=== PATIENT | male | born 1960 | race Caucasian/White ===

== ENCOUNTER 2017-02-13 10:41 | Outpatient (CLI) | payer BC ==
[~2017-02-13] VITALS: Ht 170.2 cm; Wt 83.9 kg
[~2017-02-13 10:41] MED LIST: ALEV220T26 PO; NS 1,000 ML IV ONE; TRIA0.5O EX
[2017-02-13] MEDS ORDERED: LIDOCAINE 2% INJ 100 MG/5 ML SDV (FOR ANES.) As Ordered ONE (11:34)
[2017-02-13] MEDS ORDERED: PROPOFOL 200 MG/20 ML VIAL As Ordered ONE ×2 (11:34→11:47)
--- NOTE | 2017-02-13 11:51 | ROOR ---
Patient Name: Mayo Yarbrough Procedure Date: 02/13/2017 11:31 AM Date of : 1960 Age: 56 Room: [facility] Gender: Male Note Status: Finalized Procedure: Colonoscopy Indications: High risk colon cancer surveillance: Personal history of colonic polyps, Surveillance: Personal history of colonic polyps (unknown histology) on last colonoscopy 3 years ago Providers: Giorgio POLK MD Referring MD: LARISA FAIR DO Requesting Provider: Medicines: Monitored Anesthesia Care Complications: No immediate complications. Procedure: Pre-Anesthesia Assessment: - The heart rate, respiratory rate, oxygen saturations, blood pressure, adequacy of pulmonary ventilation, and response to care were monitored throughout the procedure. The Colonoscope was introduced through the anus and advanced to the cecum, identified by appendiceal orifice and ileocecal valve. The colonoscopy was performed without difficulty. The patient tolerated the procedure well. The quality of the bowel preparation was good. Findings: The perianal and digital rectal examinations were normal. Small Internal Hemorrhoids. The entire examined colon appeared normal on direct and retroflexion views. Impression: - Small Internal Hemorrhoids. - The entire colon is normal on direct and retroflexion views. - No specimens collected. Recommendation: - Repeat colonoscopy in 5 years for surveillance based on personal history of previous adenomatous polyps. Giorgio Polk MD Giorgio POLK MD 02/13/2017 11:51:18 AM This report has been signed electronically. Number of Addenda: 0 Note Initiated On: 02/13/2017 11:31 AM Estimated Blood Loss: Estimated blood loss: none.
[2017-02-13 12:16] VITALS: BP 114/71
== END 2017-02-13 12:15 | disposition home or self-care (01) ==
LOC: M OPP 10:41
PROVIDERS: ATTEND Internal Medicine Gastroenterology
DX: Z12.11 Encounter for screening for malignant neoplasm of colon (principal); K64.8 Other hemorrhoids; R73.09 Other abnormal glucose; R06.83 Snoring; Z87.891 Personal history of nicotine dependence; Z79.899 Other long term (current) drug therapy

== ENCOUNTER → 2018-12-28 | Outpatient (REF) | payer BC ==
[~2018-12-28] MED LIST changes: -NS 1,000 ML IV ONE
== END ==
LOC: M SFHCCLAY 15:06
PROVIDERS: ATTEND Nurse Practitioner Family
DX: R31.9 Hematuria, unspecified (principal)

== ENCOUNTER → 2019-01-03 | Outpatient (CLI) | payer BC, OTHER ==
[2019-01-03 13:45] LABS: APPEARANCE, URINE CLEAR (CLEAR); BACTERIA, URINE AUTO NEGATIVE (NEGATIVE); BILIRUBIN, URINE AUTO NEGATIVE (NEGATIVE); BLOOD, URINE BLOOD NEGATIVE (NEGATIVE); COLOR, URINE YELLOW (YELLOW); GLUCOSE, URINE (UA) AUTO NEGATIVE (NEGATIVE); KETONE, URINE AUTO NEGATIVE (NEGATIVE); LEUKOCYTE ESTERASE, URINE AUTO NEGATIVE (NEGATIVE); NITRITE, URINE AUTO NEGATIVE (NEGATIVE); PROTEIN, URINE AUTO NEGATIVE (NEGATIVE); RBC, URINE AUTO 1 /HPF (0-3); SPECIFIC GRAVITY URINE AUTO 1.016 (1.002-1.035); SQUAMOUS EPITHELIAL CELL UR AU 0 /HPF (0-6); UROBILINOGEN, URINE AUTO 0.2 mg/dL (0.0-2.0); WBC, URINE AUTO 1 /HPF (0-3)
[2019-01-03 14:01] LABS: BLOOD UREA NITROGEN 16 MG/DL (7-18); CALCIUM LEVEL 8.9 MG/DL (8.8-10.2); CARBON DIOXIDE LEVEL 29 MEQ/L (21-32); CHLORIDE LEVEL 104 MEQ/L (98-107); CREATININE FOR GFR 0.97 MG/DL (0.70-1.30); GLOMERULAR FILTRATION RATE > 60.0 (>49); GLUCOSE, FASTING 185 MG/DL (70-100); POTASSIUM SERUM 4.6 MEQ/L (3.5-5.1); SODIUM LEVEL 139 MEQ/L (136-145)
== END ==
LOC: M SMT 11:16
PROVIDERS: ATTEND Nurse Practitioner Women's Health
DX: R31.0 Gross hematuria (principal); Z12.5 Encounter for screening for malignant neoplasm of prostate
CPT/HCPCS: 36415; 80048; 81001; 87086; G0103

== ENCOUNTER → 2019-01-07 | Outpatient (CLI) | payer OTHER ==
[~2019-01-07] MED LIST changes: +ISOVUE-370 76% 100ML VIAL (Q9967) As Ordered ONE
--- NOTE | 2019-01-07 11:21 | REP ---
Clinical: Gross hematuria. Technique: Precontrast, contrast enhanced, and delayed images of the abdomen and pelvis using 100 ml Isovue 370 intravenous contrast material with coronal and sagittal re-formations. Findings: Evaluation of the urinary tract system demonstrates 1.1 cm simple left renal cyst and mild chronic bilateral perinephric stranding. No hydroureteronephrosis or nephroureterolithiasis. No renal mass lesion. Bilateral ureters and bladder appear normal. Liver, spleen, pancreas, gallbladder, and bilateral adrenal glands are normal. The enteric system is without obstruction or acute inflammatory process. Colonic and sigmoid diverticula noted without acute diverticulitis. Pelvis demonstrates normal bladder. Prostate gland is moderately enlarged measuring approximately 4.8 cm maximal transverse diameter. No ascites. No free air. No adenopathy. Abdominal aorta without aneurysm or dissection. Musculoskeletal structures without focal osseous abnormality. Lung bases are clear. Impression: 1. 1.1 cm simple left renal cyst. 2. Scattered colonic diverticula without acute diverticulitis. 3. No further acute abdominopelvic pathology appreciated. 4. Prostate gland mildly enlarged. Electronically Signed by Kush Guzmán MD 01/07/2019 11:13 A
== END ==
LOC: M RAD 09:36
PROVIDERS: ATTEND Nurse Practitioner Women's Health
DX: R31.0 Gross hematuria (principal)
CPT/HCPCS: 74178; Q9967

== ENCOUNTER → 2019-01-18 | Outpatient (REF) | payer OTHER ==
[~2019-01-18] MED LIST changes: -ISOVUE-370 76% 100ML VIAL (Q9967) As Ordered ONE
[2019-01-18 12:14] LABS: ALBUMIN 3.8 GM/DL (3.2-5.2); ALT/SGPT 17 U/L (12-78); BILIRUBIN,TOTAL 0.7 MG/DL (0.2-1.0); BLOOD UREA NITROGEN 12 MG/DL (7-18); CALCIUM LEVEL 8.7 MG/DL (8.8-10.2); CARBON DIOXIDE LEVEL 28 MEQ/L (21-32); CHLORIDE LEVEL 106 MEQ/L (98-107); CHOLESTEROL LEVEL 204 MG/DL (<200); CHOLESTEROL RISK RATIO 3.517 (<5); CREATININE FOR GFR 0.77 MG/DL (0.70-1.30); GLOMERULAR FILTRATION RATE > 60.0 (>49); GLUCOSE, FASTING 124 MG/DL (70-100); HDL CHOLESTEROL 58 MG/DL (>40); LDL CHOLESTEROL 130 MG/DL (<100); NON-HDL-C 146 MG/DL; POTASSIUM SERUM 4.3 MEQ/L (3.5-5.1); SODIUM LEVEL 140 MEQ/L (136-145); TOTAL PROTEIN 6.5 GM/DL (6.4-8.2); TRIGLYCERIDES LEVEL 82 MG/DL (<150)
== END ==
LOC: M SFHCCLAY 08:16
PROVIDERS: ATTEND Family Medicine
DX: Z00.00 Encounter for general adult medical examination without abnormal findings (principal); Z13.220 Encounter for screening for lipoid disorders; Z13.1 Encounter for screening for diabetes mellitus; Z83.3 Family history of diabetes mellitus

== ENCOUNTER → 2019-01-21 | Outpatient (REF) | payer OTHER ==
[2019-01-21 13:39] LABS: HEMOGLOBIN A1c 6.1 %
== END ==
LOC: M SFHCCLAY 08:18
PROVIDERS: ATTEND Family Medicine
DX: R73.01 Impaired fasting glucose (principal)

== ENCOUNTER → 2019-04-12 | Outpatient (REF) | payer OTHER ==
[~2019-04-12] MED LIST changes: +ALEV220T22 PO; +IBUP-1022 PO
[2019-04-12 17:07] LABS: ALBUMIN 3.9 GM/DL (3.2-5.2); ALT/SGPT 20 U/L (12-78); BILIRUBIN,TOTAL 0.7 MG/DL (0.2-1.0); BLOOD UREA NITROGEN 11 MG/DL (7-18); CALCIUM LEVEL 9.2 MG/DL (8.8-10.2); CARBON DIOXIDE LEVEL 30 MEQ/L (21-32); CHLORIDE LEVEL 105 MEQ/L (98-107); CREATININE FOR GFR 0.78 MG/DL (0.70-1.30); GLOMERULAR FILTRATION RATE > 60.0 (>49); GLUCOSE, FASTING 101 MG/DL (70-100); POTASSIUM SERUM 4.2 MEQ/L (3.5-5.1); SODIUM LEVEL 141 MEQ/L (136-145); TOTAL PROTEIN 6.9 GM/DL (6.4-8.2)
[2019-04-12 17:12] LABS: HEMATOCRIT 43.8 % (42.0-52.0); HEMOGLOBIN 14.7 g/dl (13.5-17.5); MEAN CORPUSCULAR HEMOGLOBIN 33.3 pg (27.0-33.0); MEAN CORPUSCULAR HGB CONC 33.6 g/dl (32.0-36.5); MEAN CORPUSCULAR VOLUME 99.3 fl (80.0-96.0); PLATELET COUNT, AUTOMATED 213 10^3/uL (150-450); RED BLOOD COUNT 4.41 10^6/uL (4.30-6.10); WHITE BLOOD COUNT 5.8 10^3/uL (4.0-10.0)
[2019-04-12 17:27] LABS: BACTERIA, URINE AUTO NEGATIVE (NEGATIVE); RBC, URINE AUTO 0 /HPF (0-3); SQUAMOUS EPITHELIAL CELL UR AU 0 /HPF (0-6); WBC, URINE AUTO 0 /HPF (0-3)
== END ==
LOC: M LABSMT 10:08
PROVIDERS: ATTEND Specialist
DX: Z01.818 Encounter for other preprocedural examination (principal); R31.9 Hematuria, unspecified; D49.4 Neoplasm of unspecified behavior of bladder

== ENCOUNTER → 2019-04-12 | Outpatient (CLI) | payer OTHER ==
[~2019-04-12] MED LIST changes: -IBUP-1022 PO
--- NOTE | 2019-04-12 14:22 | REP ---
Chest x-ray: Two views. History: Bladder tumor. No comparison chest x-ray. Findings: The lungs are well inflated and clear. The pleural angles are sharp. Heart is near the upper range of normal in size. Cardiothoracic ratio is 46.7%. Pulmonary vasculature is not increased. There are degenerative changes in the thoracic spine. Impression: Heart near the upper range of normal in size. Otherwise negative chest x-ray. Electronically Signed by Faisal Ivey MD 04/12/2019 02:30 P
== END ==
LOC: M LRY 10:13
PROVIDERS: ATTEND Urology
DX: Z01.818 Encounter for other preprocedural examination (principal); D49.4 Neoplasm of unspecified behavior of bladder

== ENCOUNTER 2019-04-22 09:14 | Day surgery (SDC) | payer OTHER ==
[~2019-04-22] VITALS: Ht 170.2 cm; Wt 77.6 kg
[~2019-04-22 09:14] MED LIST changes: +LR 1,000 ML IV ONE; +ceFAZolin SOD 2 GM in IV 1 EA IV ONE; +mitoMYcin 40MG VIAL *UROLOGY* (J9280 PER 5MG) INTRAVESIC ONE
[2019-04-22] MEDS ORDERED: IBUP-1022 PO (09:32)
[2019-04-22] MEDS ORDERED: LIDOCAINE 2% INJ 100 MG/5 ML SDV (FOR ANES.) As Ordered ONE (12:05)
[2019-04-22] MEDS ORDERED: PROPOFOL 200 MG/20 ML VIAL As Ordered ONE (12:05)
[2019-04-22] MEDS ORDERED: ONDANSETRON 4MG/2ML VIAL (J2405) As Ordered ONE (12:06)
[2019-04-22] MEDS ORDERED: MIDAZOLAM INJ 2 MG/2 ML VIAL (J2250) As Ordered ONE (12:06)
[2019-04-22] MEDS ORDERED: dexameTHASONE 4 MG/ML 1ML VIAL (J1100) As Ordered ONE (12:06)
[2019-04-22] MEDS ORDERED: ROCURONIUM BROMIDE 50 MG/5 ML VIAL As Ordered ONE (12:06)
[2019-04-22] MEDS ORDERED: fentaNYL 100 MCG/2 ML INJECTION (J3010) As Ordered ONE ×2 (12:06→13:26)
[2019-04-22] MEDS ORDERED: ACETAMINOPHEN 1000MG 100ML IV BTL (OFIRMEV) (J0131 PER 10MG) As Ordered ONE (13:31)
[2019-04-22] MEDS ORDERED: SUGAMMADEX SODIUM 500 MG/5 ML VIAL (BRIDION) As Ordered ONE (13:34)
[2019-04-22] MEDS ORDERED: ONDANSETRON 4MG/2ML VIAL (J2405) IV PRN (14:15)
[2019-04-22] MEDS ORDERED: fentaNYL 100 MCG/2 ML INJECTION (J3010) IV PRN (14:15)
[2019-04-22] MEDS ORDERED: ACETAMINOPHEN TAB 650MG DOSE (2X325MG) PO PRN ×2 (14:15→16:45)
[2019-04-22] MEDS ORDERED: oxyCODONE 5MG TAB PO PRN (14:15)
[2019-04-22] MEDS ORDERED: LR 1,000 ML IV SCH (14:15)
[2019-04-22] MEDS ORDERED: oxyCODONE 5MG TAB As Ordered ONE (16:42)
[2019-04-22] MEDS ORDERED: oxyBUTYnin 5 MG TAB PO ONE ×2 (17:30→17:45)
[2019-04-22 17:50] VITALS: BP 143/80
--- NOTE | 2019-04-22 19:59 | RO ---
DATE OF PROCEDURE: 04/22/2019 PREPROCEDURE DIAGNOSIS: Bladder tumor. POSTPROCEDURE DIAGNOSIS: Bladder tumor. PROCEDURE: Cystoscopy, transurethral resection of bladder tumor (less than 2 cm), intravesical mitomycin C installation, examination under anesthesia. SURGEON: Dave Correa MD PLAYGROUND DIRECTOR: None. ANESTHESIA: General. OPERATIVE INDICATIONS: This is a 59-year-old male who was found to have approximately 1.5 cm tumor in his bladder. He was brought to the operating room today for treatment. DESCRIPTION OF PROCEDURE: The patient was brought to the operating room and general anesthesia was induced. Prophylactic antibiotics were infused. He was then placed in the dorsal lithotomy position and bimanual digital rectal examination under anesthesia was performed. It was negative for prostate nodules. There were no palpable bladder masses. The bladder was fairly mobile. The patient was then prepped and draped in the usual sterile fashion. I then inserted a resectoscope into the urethral meatus and advanced this to the bladder using a visual obturator. Once inside the bladder, it was thoroughly examined. The only abnormality seen was an approximately 1.5 cm papillary tumor a little bit lateral to the left ureteral orifice. This tumor was then completely resected and the specimen sent for pathologic analysis. The base of the resection was cauterized using coagulation current. Once there was good hemostasis I observed the left ureteral orifice to make sure it was not damaged during this procedure and it effluxed clear urine without any difficulty. At this point, I removed the resectoscope and inserted and #18- Uzbek three-way catheter. The balloon was filled with 30 mL of sterile water. I then hooked the irrigation port up to irrigation tubing and clamped it off. I then used the main flow channel to instill mitomycin C into the bladder at this point. 40 mg of mitomycin C was instilled. Once that was done, a catheter plug was inserted and this marked the conclusion of the procedure. The patient was then awakened from anesthesia and taken out of the dorsal lithotomy position and transferred to the recovery room in stable condition. ESTIMATED BLOOD LOSS: 5 mL COMPLICATIONS: None. SPECIMENS: Bladder tumor. PLAN: The patient will keep the mitomycin C in his bladder for an hour and then it will be allowed to drain out. He will ollowup in the clinic next week for catheter removal and to discuss the pathology results. MINDI
== END 2019-04-22 18:05 | disposition home or self-care (01) ==
LOC: M SDC 09:14
PROVIDERS: ATTEND Urology
DX: C67.9 Malignant neoplasm of bladder, unspecified (principal); R73.03 Prediabetes; R94.31 Abnormal electrocardiogram [ECG] [EKG]; R06.83 Snoring; N40.0 Benign prostatic hyperplasia without lower urinary tract symptoms; Z87.891 Personal history of nicotine dependence; Z86.010 Personal history of colon polyps
CPT/HCPCS: 51720; 52224; 88305; J0131; J0690; J1100; J2250; J2405; J3010; J9280

== ENCOUNTER → 2019-06-01 | Outpatient (REF) | payer OTHER ==
[~2019-06-01] MED LIST changes: +IBUP-1022 PO; -LR 1,000 ML IV ONE; -ceFAZolin SOD 2 GM in IV 1 EA IV ONE; -mitoMYcin 40MG VIAL *UROLOGY* (J9280 PER 5MG) INTRAVESIC ONE
[2019-06-01 17:54] LABS: APPEARANCE, URINE CLEAR (CLEAR); BACTERIA, URINE AUTO NEGATIVE (NEGATIVE); BILIRUBIN, URINE AUTO NEGATIVE (NEGATIVE); BLOOD, URINE BLOOD 3+ (NEGATIVE); COLOR, URINE YELLOW (YELLOW); GLUCOSE, URINE (UA) AUTO NEGATIVE (NEGATIVE); KETONE, URINE AUTO NEGATIVE (NEGATIVE); LEUKOCYTE ESTERASE, URINE AUTO NEGATIVE (NEGATIVE); MUCUS, URINE SMALL (NEGATIVE); NITRITE, URINE AUTO NEGATIVE (NEGATIVE); PROTEIN, URINE AUTO NEGATIVE (NEGATIVE); RBC, URINE AUTO 100 /HPF (0-3); SPECIFIC GRAVITY URINE AUTO 1.023 (1.002-1.035); SQUAMOUS EPITHELIAL CELL UR AU 0 /HPF (0-6); UROBILINOGEN, URINE AUTO 0.2 mg/dL (0.0-2.0); WBC, URINE AUTO 4 /HPF (0-3)
== END ==
LOC: M SMT 16:57
PROVIDERS: ATTEND Nurse Practitioner Women's Health
DX: R30.0 Dysuria (principal)

== ENCOUNTER → 2019-08-01 | Outpatient (REF) | payer OTHER | LOC: M SMT 13:04 | PROVIDERS: ATTEND Urology | DX: C67.9 Malignant neoplasm of bladder, unspecified (principal) ==

== ENCOUNTER → 2019-08-24 | Outpatient (CLI) | payer OTHER ==
[2019-08-24 12:00] LABS: HEMOGLOBIN A1c 5.9 %
[2019-08-24 12:15] LABS: BLOOD UREA NITROGEN 10 MG/DL (7-18); CARBON DIOXIDE LEVEL 30 MEQ/L (21-32); CHLORIDE LEVEL 104 MEQ/L (98-107); CHOLESTEROL LEVEL 187 MG/DL (<200); CREATININE FOR GFR 0.74 MG/DL (0.70-1.30); FREE T4 1.15 NG/DL (0.76-1.46); GLOMERULAR FILTRATION RATE > 60.0 (>49); GLUCOSE, FASTING 101 MG/DL (70-100); HDL CHOLESTEROL 41 MG/DL (>40); LDL CHOLESTEROL 118 MG/DL (<100); NON-HDL-C 146 MG/DL; POTASSIUM SERUM 4.5 MEQ/L (3.5-5.1); SODIUM LEVEL 140 MEQ/L (136-145); TRIGLYCERIDES LEVEL 141 MG/DL (<150)
== END ==
LOC: M LRY 10:09
PROVIDERS: ATTEND Family Medicine
DX: R00.1 Bradycardia, unspecified (principal); R73.03 Prediabetes; E78.5 Hyperlipidemia, unspecified

== ENCOUNTER → 2019-10-24 | Outpatient (REF) | payer OTHER | LOC: M SMT 13:12 | PROVIDERS: ATTEND Urology | DX: C67.9 Malignant neoplasm of bladder, unspecified (principal) ==

== ENCOUNTER → 2020-04-30 | Outpatient (REF) | payer OTHER | LOC: M SMT 13:31 | PROVIDERS: ATTEND Urology | DX: C67.9 Malignant neoplasm of bladder, unspecified (principal) ==

== ENCOUNTER → 2020-10-29 | Outpatient (REF) | payer OTHER | LOC: M SMT 13:23 | PROVIDERS: ATTEND Urology | DX: C67.9 Malignant neoplasm of bladder, unspecified (principal) ==

== ENCOUNTER → 2020-10-30 | Outpatient (REF) | payer OTHER | LOC: M LABDRAWC 11:12 | PROVIDERS: ATTEND Urology | DX: Z12.5 Encounter for screening for malignant neoplasm of prostate (principal) ==

== ENCOUNTER → 2021-01-24 | Outpatient (REF) | payer OTHER ==
[2021-01-24 16:42] LABS: BLOOD UREA NITROGEN 12 MG/DL (7-18); CALCIUM LEVEL 9.4 MG/DL (8.8-10.2); CARBON DIOXIDE LEVEL 32 MEQ/L (21-32); CHLORIDE LEVEL 107 MEQ/L (98-107); CREATININE FOR GFR 0.93 MG/DL (0.70-1.30); GLOMERULAR FILTRATION RATE > 60.0 (>49); GLUCOSE, FASTING 103 MG/DL (70-100); SODIUM LEVEL 140 MEQ/L (136-145)
[2021-01-24 17:16] LABS: HEMOGLOBIN A1c 5.6 %
== END ==
LOC: M SFHCCLAY 11:34
PROVIDERS: ATTEND Family Medicine
DX: R73.03 Prediabetes (principal)

== ENCOUNTER → 2021-05-06 | Outpatient (REF) | payer OTHER | LOC: M SMT 13:16 | PROVIDERS: ATTEND Urology | DX: C67.9 Malignant neoplasm of bladder, unspecified (principal) ==

== ENCOUNTER → 2021-11-11 | Outpatient (REF) | payer OTHER | LOC: M SMT 12:59 | PROVIDERS: ATTEND Urology | DX: C67.9 Malignant neoplasm of bladder, unspecified (principal) ==

== ENCOUNTER → 2022-01-29 | Outpatient (REF) | payer OTHER ==
[2022-01-29 18:49] LABS: HEMOGLOBIN A1c 5.7 %
[2022-01-29 18:55] LABS: BLOOD UREA NITROGEN 14 MG/DL (7-18); CALCIUM LEVEL 9.9 MG/DL (8.8-10.2); CARBON DIOXIDE LEVEL 28 MEQ/L (21-32); CHLORIDE LEVEL 108 MEQ/L (98-107); CHOLESTEROL LEVEL 233 MG/DL (<200); GLOMERULAR FILTRATION RATE > 60.0 (>49); GLUCOSE, FASTING 112 MG/DL (70-100); HDL CHOLESTEROL 66 MG/DL (>40); LDL CHOLESTEROL 144 MG/DL (<100); NON-HDL-C 167 MG/DL; POTASSIUM SERUM 4.7 MEQ/L (3.5-5.1); SODIUM LEVEL 142 MEQ/L (136-145); TRIGLYCERIDES LEVEL 114 MG/DL (<150)
== END ==
LOC: M SFHCCLAY 09:58
PROVIDERS: ATTEND Family Medicine
DX: Z00.00 Encounter for general adult medical examination without abnormal findings (principal); R73.03 Prediabetes; E78.5 Hyperlipidemia, unspecified; Z12.5 Encounter for screening for malignant neoplasm of prostate
CPT/HCPCS: 80048; 80061; 83036; G0103

== ENCOUNTER → 2022-04-10 | Outpatient (CLI) | payer OTHER | LOC: M LABSMTC 10:24 | PROVIDERS: ATTEND Anesthesiology | DX: Z01.812 Encounter for preprocedural laboratory examination (principal); Z11.52 Encounter for screening for COVID-19 ==

== ENCOUNTER 2022-04-15 08:37 | Day surgery (SDC) | payer OTHER ==
[~2022-04-15] VITALS: Ht 170.2 cm; Wt 82.3 kg
[~2022-04-15 08:37] MED LIST changes: +NS 1,000 ML IV ONE
[2022-04-15] MEDS ORDERED: propofoL 200 MG/20 ML VIAL As Ordered ONE (09:54)
[2022-04-15] MEDS ORDERED: LIDOCAINE 2% 100MG/5ML SDV (FOR ANES.) As Ordered ONE (09:54)
[2022-04-15 10:35] VITALS: BP 107/60
== END 2022-04-15 10:46 | disposition home or self-care (01) ==
LOC: M OPP 08:37
PROVIDERS: ATTEND Internal Medicine Gastroenterology
DX: Z12.11 Encounter for screening for malignant neoplasm of colon (principal); Z86.010 Personal history of colon polyps; Z80.0 Family history of malignant neoplasm of digestive organs; D12.5 Benign neoplasm of sigmoid colon; Z79.1 Long term (current) use of non-steroidal anti-inflammatories (NSAID); Z79.52 Long term (current) use of systemic steroids; M17.12 Unilateral primary osteoarthritis, left knee; Z85.51 Personal history of malignant neoplasm of bladder; Z92.21 Personal history of antineoplastic chemotherapy

== ENCOUNTER → 2022-05-20 | Outpatient (REF) | payer OTHER ==
[~2022-05-20] MED LIST changes: -NS 1,000 ML IV ONE
== END ==
LOC: M SMT 15:40
PROVIDERS: ATTEND Urology
DX: C67.9 Malignant neoplasm of bladder, unspecified (principal)

== ENCOUNTER → 2022-10-24 | Outpatient (CLI) | payer OTHER | LOC: M WHC 15:16 | PROVIDERS: ATTEND Nurse Practitioner Family | DX: N43.3 Hydrocele, unspecified (principal); N44.2 Benign cyst of testis; N50.812 Left testicular pain; N50.89 Other specified disorders of the male genital organs ==

== ENCOUNTER 2022-11-03 23:38 | Emergency (ER) | payer OTHER ==
[~2022-11-03] VITALS: Ht 170.2 cm; Wt 87.0 kg
[2022-11-04] MEDS ORDERED: methylPREDNISolone 125MG 2ML VIAL IV ONE (01:35)
[2022-11-04] MEDS ORDERED: diazePAM 10MG/2ML SYRINGE IM ONE (01:35)
[2022-11-04] MEDS ORDERED: carisoprodoL 350 MG TAB PO ONE (04:45)
[2022-11-04] MEDS ORDERED: NS 1,000 ML IV ONE (04:50)
[2022-11-04 05:00] LABS: AMPHETAMINES LEVEL URINE NEGATIVE (NEGATIVE); BARBITURATES URINE NEGATIVE (NEGATIVE); BENZODIAZEPINES URINE NEGATIVE (NEGATIVE); CANNABINOIDS URINE NEGATIVE (NEGATIVE); COCAINE METABOLITE URINE NEGATIVE (NEGATIVE); METHADONE URINE NEGATIVE (NEGATIVE); OPIATES URINE NEGATIVE (NEGATIVE); PHENCYCLIDINE URINE NEGATIVE (NEGATIVE)
[2022-11-04] MEDS ORDERED: PREGABALIN 100 MG CAP (LYRICA) PO ONE (06:00)
[2022-11-04 07:54] VITALS: BP 127/60
[2022-11-04] MEDS ORDERED: MEDR4PAK PO (07:55)
[2022-11-04] MEDS ORDERED: PREG25CA PO (07:56)
== END 2022-11-04 08:17 | disposition home or self-care (01) ==
LOC: M ED 23:38 → EDBD 23:38 → M ED 11-04 08:17
DX: M54.30 Sciatica, unspecified side (principal); E78.5 Hyperlipidemia, unspecified; Z87.891 Personal history of nicotine dependence; Z79.899 Other long term (current) drug therapy
CPT/HCPCS: 72131; 73502; 80307; 81002; 96372; 96374; 99284; J2930; J3360

== ENCOUNTER 2022-11-06 10:58 | Emergency (ER) | payer OTHER ==
[~2022-11-06] VITALS: Ht 170.2 cm; Wt 81.8 kg
[~2022-11-06 10:58] MED LIST changes: +MEDR4PAK PO; +PREG25CA PO
[2022-11-06] MEDS ORDERED: PERCOCET 5MG/325MG TAB PO ONE (11:20)
[2022-11-06 15:38] VITALS: BP 166/78
== END 2022-11-06 15:40 | disposition home or self-care (01) ==
LOC: M ED 10:58 → EDBD 10:58 → M ED 15:40
DX: M51.26 Other intervertebral disc displacement, lumbar region (principal); F17.200 Nicotine dependence, unspecified, uncomplicated; Z79.899 Other long term (current) drug therapy

== ENCOUNTER 2022-11-30 10:29 | Emergency (ER) | payer OTHER ==
[~2022-11-30] VITALS: Ht 170.2 cm; Wt 84.4 kg
[2022-11-30] MEDS ORDERED: PREG25CA2 (10:58)
[2022-11-30] MEDS ORDERED: MELO7.5T35 (10:58)
[2022-11-30] MEDS ORDERED: ACET-683 PO (10:58)
[2022-11-30] MEDS ORDERED: ACYC1TAB4 PO (12:34)
[2022-11-30 12:41] VITALS: BP 141/74
== END 2022-11-30 12:50 | disposition home or self-care (01) ==
LOC: M ED 10:29
DX: B02.9 Zoster without complications (principal); Z79.899 Other long term (current) drug therapy

== ENCOUNTER → 2022-12-19 | Outpatient (CLI) | payer OTHER ==
[~2022-12-19] MED LIST changes: +ACET-683 PO; +ACYC1TAB4 PO; +BUPIVACAINE HCL 0.5% 30ML VIAL As Ordered ONE; +ISOVUE-300 61% 100ML VIAL As Ordered ONE; +LIDOCAINE 1% MDV 20ML VIAL As Ordered ONE; +MELO7.5T35; +PREG25CA2; +methylPREDNISolone SUSP 40MG/ML 1ML VIAL (DEPO MEDROL) As Ordered ONE
== END ==
LOC: M RAD 14:53
PROVIDERS: ATTEND Orthopaedic Surgery
DX: M16.12 Unilateral primary osteoarthritis, left hip (principal)
CPT/HCPCS: 20610; 77002; J1030; Q9967; S0020

== ENCOUNTER → 2022-12-31 | Outpatient (REF) | payer OTHER ==
[~2022-12-31] MED LIST changes: -BUPIVACAINE HCL 0.5% 30ML VIAL As Ordered ONE; -ISOVUE-300 61% 100ML VIAL As Ordered ONE; -LIDOCAINE 1% MDV 20ML VIAL As Ordered ONE; -methylPREDNISolone SUSP 40MG/ML 1ML VIAL (DEPO MEDROL) As Ordered ONE
[2022-12-31 12:38] LABS: ALBUMIN 3.8 G/DL (3.2-5.2); ALKALINE PHOSPHATASE 56 U/L (46-116); ALT/SGPT < 9 U/L (7.0-40); AST/SGOT 13 U/L (<34); BILIRUBIN,TOTAL 0.7 MG/DL (0.3-1.2); BLOOD UREA NITROGEN 15 MG/DL (9-23); CALCIUM LEVEL 9.1 MG/DL (8.3-10.6); CARBON DIOXIDE LEVEL 31 MMOL/L (20-31); CHLORIDE LEVEL 103 MMOL/L (98-107); CHOLESTEROL LEVEL 218 MG/DL (<200); CREATININE FOR GFR 0.71 MG/DL (0.70-1.30); GLOMERULAR FILTRATION RATE > 60.0 (>49); GLUCOSE, FASTING 155 MG/DL (74-106); HDL CHOLESTEROL 64.1 MG/DL (>40); LDL CHOLESTEROL 133.5 MG/DL (<100); NON-HDL-C 153.9 MG/DL; POTASSIUM SERUM 4.1 MMOL/L (3.5-5.1); SODIUM LEVEL 139 MMOL/L (136-145); TOTAL PROTEIN 6.4 G/DL (5.7-8.2); TRIGLYCERIDES LEVEL 102 MG/DL (<150)
[2022-12-31 13:14] LABS: HEMOGLOBIN A1c 5.9 % (4.0-6.0)
== END ==
LOC: M SFHCCLAY 07:06
PROVIDERS: ATTEND Nurse Practitioner Family
DX: R73.03 Prediabetes (principal); E78.5 Hyperlipidemia, unspecified

== ENCOUNTER → 2023-05-19 | Outpatient (REF) | payer OTHER ==
[~2023-05-19] MED LIST changes: -PREG25CA2; +PREG25CA3
== END ==
LOC: M SMT 17:34
PROVIDERS: ATTEND Urology
DX: C67.9 Malignant neoplasm of bladder, unspecified (principal)

== ENCOUNTER → 2024-01-15 | Outpatient (REF) | payer MEDICARE ==
[2024-01-15 17:36] LABS: ALKALINE PHOSPHATASE 63 U/L (46-116); ALT/SGPT 26 U/L (7.0-40); AST/SGOT 22 U/L (<34); BILIRUBIN,TOTAL 1.1 MG/DL (0.3-1.2); BLOOD UREA NITROGEN 19 MG/DL (9-23); CALCIUM LEVEL 9.5 MG/DL (8.3-10.6); CARBON DIOXIDE LEVEL 28 MMOL/L (20-31); CHLORIDE LEVEL 107 MMOL/L (98-107); CHOLESTEROL LEVEL 210 MG/DL (<200); CHOLESTEROL RISK RATIO 3.38 (<5); CREATININE FOR GFR 0.91 MG/DL (0.70-1.30); GLOMERULAR FILTRATION RATE > 60.0 (>49); GLUCOSE, FASTING 115 MG/DL (74-106); POTASSIUM SERUM 4.8 MMOL/L (3.5-5.1); PSA SCREENING 1.37 NG/ML (< 4.00); SODIUM LEVEL 140 MMOL/L (136-145); TOTAL PROTEIN 6.7 G/DL (5.7-8.2); TRIGLYCERIDES LEVEL 85 MG/DL (<150)
[2024-01-15 17:46] LABS: HEMOGLOBIN A1c 5.3 % (4.0-6.0)
== END ==
LOC: M SFHCCLAY 10:14
PROVIDERS: ATTEND Nurse Practitioner Family
DX: N43.3 Hydrocele, unspecified (principal); M51.36 Other intervertebral disc degeneration, lumbar region; E78.5 Hyperlipidemia, unspecified; R73.03 Prediabetes; Z12.5 Encounter for screening for malignant neoplasm of prostate
CPT/HCPCS: 80053; 80061; 83036; G0103

== ENCOUNTER → 2024-05-23 | Outpatient (REF) | payer MEDICARE | LOC: M SMT 13:15 | PROVIDERS: ATTEND Urology | DX: C67.9 Malignant neoplasm of bladder, unspecified (principal) ==

== ENCOUNTER → 2024-06-23 | Outpatient (REF) | payer MEDICARE ==
[2024-06-23 17:30] LABS: BLOOD UREA NITROGEN 18 MG/DL (9-23); CALCIUM LEVEL 9.7 MG/DL (8.3-10.6); CARBON DIOXIDE LEVEL 30 MMOL/L (20-31); CHLORIDE LEVEL 106 MMOL/L (98-107); CREATININE FOR GFR 0.86 MG/DL (0.70-1.30); GLOMERULAR FILTRATION RATE > 60.0 (>49); GLUCOSE, FASTING 98 MG/DL (74-106); POTASSIUM SERUM 4.2 MMOL/L (3.5-5.1); SODIUM LEVEL 143 MMOL/L (136-145)
== END ==
LOC: M LABSMT 13:44
PROVIDERS: ATTEND Urology
DX: C67.9 Malignant neoplasm of bladder, unspecified (principal)

== ENCOUNTER → 2024-06-29 | Outpatient (CLI) | payer MEDICARE ==
[~2024-06-29] MED LIST changes: +ISOVUE-370 76% 100ML VIAL As Ordered ONE
== END ==
LOC: M RAD 10:39
PROVIDERS: ATTEND Urology
DX: C67.9 Malignant neoplasm of bladder, unspecified (principal)
CPT/HCPCS: 74178; Q9967

== ENCOUNTER → 2024-07-27 | Outpatient (CLI) | payer MEDICARE ==
[~2024-07-27] MED LIST changes: -ISOVUE-370 76% 100ML VIAL As Ordered ONE; -MELO7.5T35; +MELO7.5T35 PO; -PREG25CA3; +PREG25CA3 PO
== END ==
LOC: M CLY 08:56
PROVIDERS: ATTEND Urology
DX: Z01.818 Encounter for other preprocedural examination (principal); C68.9 Malignant neoplasm of urinary organ, unspecified

== ENCOUNTER → 2024-07-27 | Outpatient (REF) | payer MEDICARE ==
[2024-07-27 11:32] LABS: HEMATOCRIT 44.7 % (42.0-52.0); HEMOGLOBIN 15.3 g/dl (13.5-17.5); MEAN CORPUSCULAR HEMOGLOBIN 33.1 pg (27.0-33.0); MEAN CORPUSCULAR HGB CONC 34.2 g/dl (32.0-36.5); MEAN CORPUSCULAR VOLUME 96.8 fl (80.0-96.0); PLATELET COUNT, AUTOMATED 208 10^3/uL (150-450); RED BLOOD COUNT 4.62 10^6/uL (4.30-6.10); WHITE BLOOD COUNT 6.3 10^3/uL (4.0-10.0)
[2024-07-27 11:55] LABS: BLOOD UREA NITROGEN 15 MG/DL (9-23); CALCIUM LEVEL 9.4 MG/DL (8.3-10.6); CARBON DIOXIDE LEVEL 32 MMOL/L (20-31); CHLORIDE LEVEL 105 MMOL/L (98-107); CREATININE FOR GFR 0.79 MG/DL (0.70-1.30); GLOMERULAR FILTRATION RATE > 60.0 (>49); GLUCOSE, FASTING 114 MG/DL (74-106); POTASSIUM SERUM 4.6 MMOL/L (3.5-5.1); SODIUM LEVEL 142 MMOL/L (136-145)
== END ==
LOC: M LABSMT 08:50
PROVIDERS: ATTEND Urology
DX: Z01.818 Encounter for other preprocedural examination (principal); C68.9 Malignant neoplasm of urinary organ, unspecified; N39.0 Urinary tract infection, site not specified

== ENCOUNTER 2024-08-05 06:05 | Day surgery (SDC) | payer MEDICARE ==
[~2024-08-05] VITALS: Ht 170.2 cm; Wt 81.6 kg
[2024-08-05] MEDS ORDERED: NS (Normal Saline) 0.9% 1,000 ML IV SCH ×2 (06:20→08:50)
[2024-08-05] MEDS ORDERED: propofoL 200 MG/20 ML VIAL As Ordered ONE (06:53)
[2024-08-05] MEDS ORDERED: LIDOCAINE 2% 100MG/5ML SDV (FOR ANES.) As Ordered ONE (06:53)
[2024-08-05] MEDS ORDERED: ONDANSETRON 4MG 2ML VIAL As Ordered ONE (06:53)
[2024-08-05] MEDS ORDERED: fentaNYL 100 MCG/2 ML INJECTION As Ordered ONE (06:56)
[2024-08-05] MEDS ORDERED: MIDAZOLAM INJ 2MG/2ML VIAL As Ordered ONE (06:56)
[2024-08-05] MEDS: ceFAZolin SOD 2 GM in IV 1 EA IV ONE (07:41)
[2024-08-05] MEDS ORDERED: ACETAMINOPHEN 1000MG/100ML IV BAG As Ordered ONE (07:42)
[2024-08-05] MEDS: ISOVUE-300 61% 100ML VIAL As Ordered ONE (08:30)
[2024-08-05] MEDS ORDERED: fentaNYL 100 MCG/2 ML INJECTION IV PRN (08:50)
[2024-08-05] MEDS: ONDANSETRON 4MG 2ML VIAL IV PRN (09:14)
[2024-08-05] MEDS ORDERED: PERCOCET 5MG/325MG TAB PO PRN (09:20)
[2024-08-05] MEDS: oxyBUTYnin 5 MG TAB PO PRN (09:28)
[2024-08-05 09:41] VITALS: BP 191/93
[2024-08-05] MEDS: hydrALAZINE 20MG/ML 1ML VIAL IV STA (09:41)
[2024-08-05] MEDS: hydrALAZINE 20MG/ML 1ML VIAL IV PRN (10:21)
[2024-08-05] MEDS: oxyCODONE 5MG TAB PO PRN (10:37)
[2024-08-05] MEDS: HYDROMORPHONE HCL 0.5 MG/ 0.5 ML SYRINGE IV PRN (10:37)
[2024-08-05] MEDS ORDERED: OXYB5TAB14 PO (10:49)
[2024-08-05] MEDS ORDERED: PERCOCET PO (10:54)
[2024-08-05] MEDS: KETOROLAC 30 MG/ML 1ML VIAL IV ONE (11:00)
[2024-08-05 11:35] VITALS: BP 162/80; TEMP 98; O2SAT 98
== END 2024-08-05 11:47 | disposition home or self-care (01) ==
LOC: M SDC 06:05
PROVIDERS: ATTEND Urology
DX: R89.6 Abnormal cytological findings in specimens from other organs, systems and tissues (principal); N20.0 Calculus of kidney; Z87.891 Personal history of nicotine dependence
CPT/HCPCS: 52332; 52352; 76000; 82365; 88108; C1769; C2617; J0131; J0360; J0690; J1100; J1171; J1885; J2250; J2405; J3010; Q9967

== ENCOUNTER → 2024-09-29 | Outpatient (REF) | payer MEDICARE ==
[~2024-09-29] MED LIST changes: +OXYB5TAB14 PO; +PERCOCET PO
[2024-09-29 18:32] LABS: HEMATOCRIT 42.1 % (42.0-52.0); HEMOGLOBIN 14.3 g/dl (13.5-17.5); MEAN CORPUSCULAR HEMOGLOBIN 32.6 pg (27.0-33.0); MEAN CORPUSCULAR VOLUME 96.1 fl (80.0-96.0); PLATELET COUNT, AUTOMATED 253 10^3/uL (150-450); RED BLOOD COUNT 4.38 10^6/uL (4.30-6.10); WHITE BLOOD COUNT 6.6 10^3/uL (4.0-10.0)
[2024-09-29 18:34] LABS: BLOOD UREA NITROGEN 17 MG/DL (9-23); CALCIUM LEVEL 9.1 MG/DL (8.3-10.6); CARBON DIOXIDE LEVEL 27 MMOL/L (20-31); CHLORIDE LEVEL 105 MMOL/L (98-107); CREATININE FOR GFR 0.73 MG/DL (0.70-1.30); GLOMERULAR FILTRATION RATE > 60.0 (>49); GLUCOSE, FASTING 117 MG/DL (74-106); POTASSIUM SERUM 4.4 MMOL/L (3.5-5.1); SODIUM LEVEL 142 MMOL/L (136-145)
== END ==
LOC: M LABSMT 09:58
PROVIDERS: ATTEND Nurse Practitioner Family
DX: Z01.818 Encounter for other preprocedural examination (principal)

== ENCOUNTER 2024-10-11 07:48 | Day surgery (SDC) | payer MEDICARE ==
[2024-10-11] VITALS (9 sets, daily range): BP systolic 137–180; BP diastolic 63–86; TEMP 98.1–100.5; O2SAT 96–97
[~2024-10-11] VITALS: Ht 170.2 cm; Wt 82.2 kg
[~2024-10-11 07:48] MED LIST changes: +ACETAMINOPHEN 1000MG/100ML IV BAG As Ordered ONE; +GLYCOPYRROLATE INJ 0.2 MG/ML 2 ML VIAL As Ordered ONE; +LIDOCAINE 2% 100MG/5ML SDV (FOR ANES.) As Ordered ONE; +MIDAZOLAM INJ 2MG/2ML VIAL As Ordered ONE; +ONDANSETRON 4MG 2ML VIAL As Ordered ONE; +ROCURONIUM BROMIDE 50MG/5ML VIAL As Ordered ONE; +SUGAMMADEX SODIUM 500 MG/5 ML VIAL (BRIDION) As Ordered ONE; +fentaNYL 100 MCG/2 ML INJECTION As Ordered ONE; +propofoL 200 MG/20 ML VIAL As Ordered ONE
[2024-10-11] MEDS ORDERED: LR 1,000 ML IV SCH (08:30)
[2024-10-11] MEDS ORDERED: ACETAMINOPHEN 325 MG TAB PO PRN (08:35)
[2024-10-11] MEDS ORDERED: PERCOCET 5MG/325MG TAB PO PRN (08:35)
[2024-10-11] MEDS: ceFAZolin SOD 2 GM IV ONCE IV ONE (09:03)
[2024-10-11] MEDS ORDERED: ePHEDrine SULFATE 25 MG/5 ML(5MG/ML) SYRINGE As Ordered ONE (09:22)
[2024-10-11] MEDS ORDERED: HYDROmorphone HCL 2MG/ML 1ML VIAL As Ordered ONE (09:43)
[2024-10-11] MEDS: MANNITOL 25% 12.5GM 50ML VIAL As Ordered ONE (10:11)
[2024-10-11] MEDS ORDERED: ONDANSETRON 4MG 2ML VIAL IV PRN (11:40)
[2024-10-11] MEDS: LIDOCAINE 1% SDV 30ML VIAL As Ordered ONE (11:41)
[2024-10-11] MEDS: LABETALOL 100MG/20ML VIAL IV PRN (12:09)
[2024-10-11 12:12] LABS: HEMATOCRIT 39.9 % (42.0-52.0); HEMOGLOBIN 14.4 g/dl (13.5-17.5); MEAN CORPUSCULAR HEMOGLOBIN 34.4 pg (27.0-33.0); MEAN CORPUSCULAR HGB CONC 36.1 g/dl (32.0-36.5); MEAN CORPUSCULAR VOLUME 95.2 fl (80.0-96.0); PLATELET COUNT, AUTOMATED 192 10^3/uL (150-450); RED BLOOD COUNT 4.19 10^6/uL (4.30-6.10); WHITE BLOOD COUNT 12.8 10^3/uL (4.0-10.0)
[2024-10-11] MEDS: oxyCODONE 5MG TAB PO PRN (12:22)
[2024-10-11] MEDS: HYDROMORPHONE HCL 0.5 MG/ 0.5 ML SYRINGE IV PRN (12:23)
[2024-10-11] MEDS: ONDANSETRON 4MG 2ML VIAL IV PRN (12:23)
[2024-10-11 12:42] LABS: BLOOD UREA NITROGEN 15 MG/DL (9-23); CALCIUM LEVEL 8.5 MG/DL (8.3-10.6); CARBON DIOXIDE LEVEL 28 MMOL/L (20-31); CHLORIDE LEVEL 104 MMOL/L (98-107); CREATININE FOR GFR 0.91 MG/DL (0.70-1.30); GLOMERULAR FILTRATION RATE > 60.0 (>49); GLUCOSE, FASTING 188 MG/DL (74-106); POTASSIUM SERUM 4.3 MMOL/L (3.5-5.1); SODIUM LEVEL 139 MMOL/L (136-145)
[2024-10-11] MEDS: hydrALAZINE 20MG/ML 1ML VIAL IV ONE (12:48)
[2024-10-11] MEDS: fentaNYL 100 MCG/2 ML INJECTION IV PRN (12:59)
[2024-10-11] MEDS: NS (Normal Saline) 0.9% 1,000 ML IV SCH (14:55)
[2024-10-11] MEDS: DOCUSATE SODIUM 100MG CAPSULE PO SCH (16:03)
[2024-10-11] MEDS: ceFAZolin SOD 1 GM in DEXTROSE 5% (D5W) ADV/MINI-BAG 50 ML IV SCH (16:41)
[2024-10-11] MEDS: PERCOCET 5MG/325MG TAB PO PRN (17:56)
[2024-10-11] MEDS ORDERED: HOME MED LIST COMPLETE! XX SCH (22:00)
[2024-10-12 03:52] VITALS: BP 147/68; TEMP 97.7; O2SAT 97
[2024-10-12 06:40] LABS: HEMATOCRIT 38.8 % (42.0-52.0); HEMOGLOBIN 13.3 g/dl (13.5-17.5); MEAN CORPUSCULAR HEMOGLOBIN 33.1 pg (27.0-33.0); MEAN CORPUSCULAR HGB CONC 34.3 g/dl (32.0-36.5); MEAN CORPUSCULAR VOLUME 96.5 fl (80.0-96.0); PLATELET COUNT, AUTOMATED 187 10^3/uL (150-450); RED BLOOD COUNT 4.02 10^6/uL (4.30-6.10); WHITE BLOOD COUNT 14.8 10^3/uL (4.0-10.0)
[2024-10-12 06:56] LABS: BLOOD UREA NITROGEN 13 MG/DL (9-23); CALCIUM LEVEL 8.9 MG/DL (8.3-10.6); CARBON DIOXIDE LEVEL 26 MMOL/L (20-31); CHLORIDE LEVEL 104 MMOL/L (98-107); CREATININE FOR GFR 0.97 MG/DL (0.70-1.30); GLOMERULAR FILTRATION RATE > 60.0 (>49); GLUCOSE, FASTING 183 MG/DL (74-106); POTASSIUM SERUM 4.2 MMOL/L (3.5-5.1); SODIUM LEVEL 138 MMOL/L (136-145)
[2024-10-12 08:22] VITALS: BP 135/64; TEMP 98.2; O2SAT 97
[2024-10-12] MEDS ORDERED: PERCOCET PO (08:44)
[2024-10-12] MEDS ORDERED: COLA100C5 PO (08:44)
== END 2024-10-12 12:35 | disposition home or self-care (01) ==
LOC: M SDC 07:48 → M MS4PR 14:55 → M SDC 10-12 12:35
PROVIDERS: ATTEND Urology
DX: C64.1 Malignant neoplasm of right kidney, except renal pelvis (principal); E78.00 Pure hypercholesterolemia, unspecified; R73.03 Prediabetes; Z85.51 Personal history of malignant neoplasm of bladder; Z92.21 Personal history of antineoplastic chemotherapy; Z86.0100 Personal history of colon polyps, unspecified; Z87.891 Personal history of nicotine dependence
CPT/HCPCS: 36415; 50543; 80048; 85027; 86850; 86900; 86901; 88307; J0131; J0360; J0665; J0690; J1100; J1171; J1596; J1920; J2150; J2250; J2405; J3010

== ENCOUNTER → 2024-10-28 | Outpatient (REF) | payer MEDICARE ==
[~2024-10-28] MED LIST changes: -ACETAMINOPHEN 1000MG/100ML IV BAG As Ordered ONE; +COLA100C5 PO; -GLYCOPYRROLATE INJ 0.2 MG/ML 2 ML VIAL As Ordered ONE; -LIDOCAINE 2% 100MG/5ML SDV (FOR ANES.) As Ordered ONE; -MIDAZOLAM INJ 2MG/2ML VIAL As Ordered ONE; -ONDANSETRON 4MG 2ML VIAL As Ordered ONE; -ROCURONIUM BROMIDE 50MG/5ML VIAL As Ordered ONE; -SUGAMMADEX SODIUM 500 MG/5 ML VIAL (BRIDION) As Ordered ONE; -fentaNYL 100 MCG/2 ML INJECTION As Ordered ONE; -propofoL 200 MG/20 ML VIAL As Ordered ONE
[2024-10-28 13:38] LABS: HEMATOCRIT 40.1 % (42.0-52.0); HEMOGLOBIN 13.4 g/dl (13.5-17.5); MEAN CORPUSCULAR HEMOGLOBIN 32.4 pg (27.0-33.0); MEAN CORPUSCULAR HGB CONC 33.4 g/dl (32.0-36.5); MEAN CORPUSCULAR VOLUME 97.1 fl (80.0-96.0); PLATELET COUNT, AUTOMATED 366 10^3/uL (150-450); RED BLOOD COUNT 4.13 10^6/uL (4.30-6.10); WHITE BLOOD COUNT 7.1 10^3/uL (4.0-10.0)
[2024-10-28 13:45] LABS: BLOOD UREA NITROGEN 20 MG/DL (9-23); CALCIUM LEVEL 9.2 MG/DL (8.3-10.6); CARBON DIOXIDE LEVEL 30 MMOL/L (20-31); CHLORIDE LEVEL 103 MMOL/L (98-107); CREATININE FOR GFR 0.87 MG/DL (0.70-1.30); GLOMERULAR FILTRATION RATE > 90.0 (>49); GLUCOSE, FASTING 116 MG/DL (74-106); POTASSIUM SERUM 4.6 MMOL/L (3.5-5.1); SODIUM LEVEL 141 MMOL/L (136-145)
== END ==
LOC: M SFHCCLAY 08:36
PROVIDERS: ATTEND Nurse Practitioner Family
DX: C64.1 Malignant neoplasm of right kidney, except renal pelvis (principal)

== ENCOUNTER → 2025-05-15 | Outpatient (CLI) | payer MEDICARE ==
[~2025-05-15] MED LIST changes: -IBUP-1022 PO; +IBUP600T42 PO; -PREG25CA PO; +PREG25CA63 PO
== END ==
LOC: M CLY 10:40
PROVIDERS: ATTEND Urology
DX: C64.1 Malignant neoplasm of right kidney, except renal pelvis (principal)

== ENCOUNTER → 2025-05-15 | Outpatient (REF) | payer MEDICARE ==
[2025-05-15 18:08] LABS: CALCIUM LEVEL 8.9 MG/DL (8.3-10.6); CARBON DIOXIDE LEVEL 30 MMOL/L (20-31); CHLORIDE LEVEL 104 MMOL/L (98-107); CREATININE FOR GFR 0.87 MG/DL (0.70-1.30); GLOMERULAR FILTRATION RATE > 90.0 (>49); POTASSIUM SERUM 5.0 MMOL/L (3.5-5.1); SODIUM LEVEL 140 MMOL/L (136-145)
== END ==
LOC: M SFHCCLAY 10:27
PROVIDERS: ATTEND Urology
DX: C64.1 Malignant neoplasm of right kidney, except renal pelvis (principal)

== ENCOUNTER → 2025-05-22 | Outpatient (REF) | payer MEDICARE | LOC: M SMT 13:18 | PROVIDERS: ATTEND Urology | DX: C67.9 Malignant neoplasm of bladder, unspecified (principal) ==

== ENCOUNTER → 2025-06-01 | Outpatient (CLI) | payer MEDICARE ==
[~2025-06-01] MED LIST changes: +ISOVUE-370 76% 100 ML VIAL ONE
== END ==
LOC: M PLAIMG 13:29
PROVIDERS: ATTEND Urology
DX: C64.1 Malignant neoplasm of right kidney, except renal pelvis (principal)
CPT/HCPCS: 74170; Q9967